=== PATIENT | male | born 2000 | race Two or more races ===

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

== ENCOUNTER 2019-04-12 12:08 | Emergency (ER) | payer MEDICAID ==
[~2019-04-12] VITALS: Ht 165.1 cm; Wt 91.6 kg
[2019-04-12 12:20] VITALS: Ht 165.1 cm; Wt 91.6 kg
[2019-04-12 13:50] VITALS: BP 128/70
== END 2019-04-12 13:50 | disposition home or self-care (01) ==
LOC: ED 12:08
DX: H92.01 Otalgia, right ear (principal); J02.9 Acute pharyngitis, unspecified
CPT/HCPCS: J1885